=== PATIENT | female | born 1995 | race Two or more races ===

== ENCOUNTER 2018-02-09 13:07 | Inpatient (IN) | payer BC, OTHER ==
[~2018-02-09] VITALS: Ht 160 cm; Wt 68.9 kg
--- NOTE | 2018-02-09 16:50 | NUR ---
PT ARRIVED TO MEDICAL SURGICAL UNIT AT THIS TIME, VIA AMBULATION. ADMITTED TO ROOM 108.
[2018-02-09] MEDS ORDERED: HUMALOG100 UNITS/ SUB-Q (17:01)
[2018-02-09] MEDS ORDERED: LANTUS100 UNITS/ SUB-Q (17:02)
[2018-02-09] MEDS ORDERED: AUGMENTIN 875-1 EACH PO (17:04)
[2018-02-09] MEDS ORDERED: PRENATAL 19 TA1 EAC1 PO (17:05)
--- NOTE | 2018-02-09 17:50 | NUR ---
PT ARRIVED TO UNIT. DIRECT ADMIT FROM DR. TEJEDA. INTAKE AND ASSESSMENT DONE. PIV STARTED PER PROTOCOL. CBG TAKEN = 92. PT STATES SHE ALREADY TOOK HER INSULIN DOSE THIS EVENING. PEANUT BUTTER AND CRACKERS PROVIDED. DINNER ORDER PLACED. ASSESSMENT DONE. PT ORIENTED TO ROOM AND DEMONSTRATES HOW TO CALL HER NURSE. PT STATES SHE HAS NO ADDITIONAL REQUESTS OR COMPLAINTS AT THIS TIME. CALL LIGHT WITHIN REACH. BED RAILS UP.
--- NOTE | 2018-02-09 18:24 | NUR ---
MED REC COMPLETE
--- NOTE | 2018-02-09 18:37 | NUR ---
RN IN ROOM. FRESH ICE WATER.
--- NOTE | 2018-02-09 18:57 | NUR ---
POST PRANDIAL CBG TAKEN PER ORDER. AT BEDSIDE. CBG READS 50. JUICE GIVEN. WILL RECHECK CBG IN 15 MINUTES (1909). PT DENIES DIZZINESS, LIGHTHEADEDNESS BUT STATES SHE FEELS "SWEATY." BED RAILS UP. CALL LIGHT WITHIN REACH.
--- NOTE | 2018-02-09 19:14 | NUR ---
BLOOD SURGAR RETAKEN, READS 69. HAND OFF REPORT GIVEN TO TOYA WHO WILL CALL DR. TEJEDA WITH RESULTS.
--- NOTE | 2018-02-09 19:18 | NUR ---
PT ARRIVED THIS EVENING A DIRECT ADMIT FROM DR TEJEDA FOR BLOOD SURGAR CONTROL. NEW DIAGNOSIS OF TYPE 1 DIABETES. ORDERS FOR BLOOD SUGAR CHECKS FASTING IN AM, WITH MEALS, AND 1 HOUR POST PRANDIAL EXACTLY 1 HOUR AFTER FIRST BITE OF MEAL, AND AT 3AM. DR. TEJEDA TO BE CALLED WITH ALL BLOOD SUGAR CHECKS. POST PRANDIAL BLOOD SUGAR CHECK AT 1855 READ 50, CURRENTLY IN HYPOGLYCEMIA PROTOCOL. CASE MANAGEMENT CONSULT FOR HOME FOOD/DIET NEEDS.
--- NOTE | 2018-02-09 19:35 | NUR ---
PATIENTS BLOOD SUGAR WHEN CHECKED ONE HOUR POST EATING IT WAS 69. PATIENT GIVEN APPLE JUICE. AND RECHECKED 30 MINUTES LATER AND IT WAS 86. PLACED A CALL TO DR TEJEDA. DR TEJEDA GAVE A VERBAL ORDER TO GIVEN LEVEMIR AT 2100. VERIFIED ORDER USING THE READBACK METHOD. NO FRUTHER ORERS.
--- NOTE | 2018-02-09 20:09 | NUR ---
REPORT RECEIVED FROM DAY SHIFT NURSE. PATIENT RESTING IN BED AND WATCHING TV WHILE HAVING A SNACK. WILL CONTINUE TO MONITOR BLOOD GLUCOSE. PATIENT DENIES ANY NEEDS AT THIS TIME. CALL LIGHT WITHIN REACH.
--- NOTE | 2018-02-09 20:35 | NUR ---
PATIENT ASSESSMENT COMPLETED. I&Os AND VITAL SIGNS RECORDED. PATIENT EDUCATED ABOUT SIGNS AND SYMPTOMS OF HYPOGLYCEMIA. PATIENT VERBALIZED UNDERSTANDING. MEDICATIONS GIVEN PER ORDER. PATIENT DENIES ANY OTHER NEEDS AT THIS TIME. CALL LIGHT WITHIN REACH. PATIENT INDEPENDENT IN ROOM.
--- NOTE | 2018-02-09 22:32 | NUR ---
PATIENT RESTING IN BED, TV OFF. PATIENT EDUCATED ABOUT SLEEP. PATIENT VERBILIZES UNDERSTANDING. LIGHTS OFF IN THE ROOM. PATIENT DENIES PAIN. PATIENT DENIES ANY OTHER NEEDS AT THIS TIME. CALL LIGHT WITHIN REACH. PATIENT INDEPENDENT IN ROOM.
--- NOTE | 2018-02-10 01:27 | NUR ---
PATIENT RESTING IN BED WITH EYES CLOSED. RR 17. BREATHING EVEN AND UNLABORED, NO SIGNS OF RESPIRATORY DISTRESS. PATIENT INDEPENDENT IN ROOM. CALL LIGHT WITHIN REACH.
--- NOTE | 2018-02-10 03:00 | NUR ---
PATIENT ASSESSMENT COMPLETED. PATIENT GLUCOSE TAKEN PER ORDER, MD NOTIFIED. PATIENT GIVEN SNACK, WILL RECHECK CBG IN AN HOUR PER MD. PATIENT DENIES PAIN. FRESH WATER GIVEN. VITAL SIGNS AND I&Os DOCUMENTED. PATIENT RESTING IN BED. PATIENT INDEPENDENT IN ROOM. PATIENT DENIES ANY OTHER NEEDS AT THIS TIME. PATIENT DENIES OR SHOWS SIGNS OF HYPOGLYCEMIA. CALL LIGHT WITHIN REACH.
--- NOTE | 2018-02-10 03:16 | NUR ---
PATIENTS BLOOD SUGAR TAKEN AND RECORDED. BS 70. PLACED CALL TO DR TEJEDA PER ORDER. RECEIVED VERBAL ORDER FROM DR TEJEDA TO GIVE SNACKS AND REPEAT IN 1HOUR FROM FIRST BITE. CONFIRMED ORDER USING THE READBACK METHOD. PATIENT GIVEN JUICE AND ESVIN CRACKERS.
--- NOTE | 2018-02-10 04:20 | NUR ---
PATIENT RESTING IN BED WITH EYES CLOSED. PATIENT BLOOD GLUCOSE RECHECKED PER MD ORDER. BLOOD GLUCOSE WNL. PATIENT DENIES ANY OTHER NEEDS AT THIS TIME. CALL LIGHT WITHIN REACH.
--- NOTE | 2018-02-10 05:07 | NUR ---
PATIENT RESTED WELL THROUGHOUT NIGHT. PATIENT ON RA. PATIENT DENIED PAIN. ADA DIET. PATIENTS IV SL IN RIGHT AC. DIET, DIABETIC, AND CASE MANAGEMENT CONSULT ORDERED. PATIENTS BLOOD GLUCOSE TAKEN PER ORDER. CALL MD WITH ALL GLUCOSE READINGS. PATIENT INDEPENDENT IN ROOM. PATIENTS GLUCOSE LEVELS WNL THOUGH THE NIGHT.
--- NOTE | 2018-02-10 07:04 | NUR ---
PATIENTS BLOOD SUGAR WAS LOW. PATIENT GIVEN ORANGE JUICE, CRACKERS, AND PEANUT BUTTER. MD NOTIFIED. NEW ORDERS RECEIVED. CONFIRMED NEW ORDERS USING THE READBACK METHOD. WILL PASS ORDERS ONTO DAY SHIFT.
--- NOTE | 2018-02-10 07:17 | NUR ---
PT IN BED, DROWSY BUT AWAKE. PERSONAL SUPPLIES AND CALL LIGHT IN REACH. RECIEVED BEDSIDE REPORT FROM LUISA PITTMAN AND SUE, STUDENT NURS.
--- NOTE | 2018-02-10 08:00 | NUR ---
PATIENT SITTING UP IN BED WITH TV ON AND LOOKING AT HER CELL PHONE. PATIENT STATES THAT SHE WOULD LIKE TO SHOWER AFTER BREAKFAST. CALL BUTTON IN REACH. NO OTHER NEEDS AT THIS TIME.
--- NOTE | 2018-02-10 08:06 | NUR ---
PT'S BG CHECKED AT 0758, BG 104. NOTIFIED DR. TEJEDA VIA TELEPHONE. . PT BEGAN EATING AT 0758.
--- NOTE | 2018-02-10 08:29 | NUR ---
PT ATE 30% OF BREAKFAST. DR. TEJEDA IN TO SEE PT. GAVE VORB AT BEDSIDE TO GIVE 5 UNITS OF NOVOLOG SQ RATHER THAN THE ORDERED 10 UNITS SQ NOVOLOG PT ONLY ATE 30% OF BREAKFAST. PT'S PERSONAL SUPPLIES IN REACH, IS CALL LIGHT.
--- NOTE | 2018-02-10 09:35 | NUR ---
PATIENT GETTING READY FOR A SHOWER. FRESH ICE WATER GIVEN AND LINENS CHANGED. NO OTHER NEEDS AT THIS TIME.
--- NOTE | 2018-02-10 11:19 | NUR ---
PT IN BED, AWAKE, ALERT, WATCHING TV AND ON PHONE. DENIES PAIN OR NAUSEA. PERSONAL SUPPLIES AND CALL LIGHT IN REACH. PT REPORTED HAVING A LARGE FORMED BM.
--- NOTE | 2018-02-10 11:44 | NUR ---
PT'S BG WAS 87. NOTIFIED DR. TEJEDA VIA PHONE. RECIEVED TORB: GIVE NOVOLOG 9 UNITS SQ X 1, AND HOLD NOVOLOG 16 UNITS.
--- NOTE | 2018-02-10 12:24 | NUR ---
TIN POURER IN TO SEE PT. ONCE TIN POURER LEFT PT'S ROOM, PT BEGAN EATING LUNCH. STARTED EATING AT 1221. PT DENIES NEEDS, PERSONAL SUPPLIES AND CALL LIGHT IN REACH. PT'S SISTER AT BEDSIDE. PT DENIED PAIN.
--- NOTE | 2018-02-10 12:31 | NUR ---
PT HAS EATEN 80% OF HER LUNCH THUS FAR. GAVE NOVOLOG 9 UNITS SQ X 1 ORDERED. PT TOLERATING LUNCH WELL.
--- NOTE | 2018-02-10 13:24 | NUR ---
PT IN BED, BG CHECKED, 174. NOTIFIED DR. TEJEDA VIA TELEPHONE. NO NEW ORDERS AT THIS TIME. PT'S PERSONAL SUPPLIES IN REACH, IS CALL LIGHT.
--- NOTE | 2018-02-10 13:25 | NUR ---
PT RESTING IN BED. I FOUND HER PLEASANT, SOFT SPOKEN AND SEEMED COMFORTABLE WITH MY PRESENCE. PT SPOKE VERY SOFTLY, RM SEEMED RATHER CHILLY TO ME. PT SAID IT WAS COMFORTABLE TO HER. SHE THANKED ME FOR COMING, EXTENDED A BLESSING, WILL CONTINUE TO FOLLOW NEEDED
--- NOTE | 2018-02-10 13:35 | NUR ---
PATIENT RESTING IN BED WITH FRIEND IN ROOM TO VISIT. THIS TAILING MACHINE OPERATOR ENCOURAGED THE PATIENT TO DRINK MORE FLUIDS. CALL BUTTON IN REACH. NO OTHER NEEDS AT THIS TIME.
--- NOTE | 2018-02-10 15:41 | NUR ---
PATIENT RESTING IN BED, EYES CLOSED. FRESH ICE WATER AT BEDSIDE TABLE. CALL LIGHT IN REACH. NO OTHER NEEDS AT THIS TIME.
--- NOTE | 2018-02-10 16:42 | NUR ---
PT IN BED, AWAKE, ALERT, ORIENTED. DENIES PAIN. REPORTED HAVING A SOFT MEDIUM BM, AND HAD 250 CC CLEAR YELLOW URINE OUT. PROVIDED WITH FRESH ICE WATER. PT DENIED OTHER NEEDS.
--- NOTE | 2018-02-10 16:54 | NUR ---
PT'S BG [address] TEJEDA VIA TELEPHONE. DR. TEJEDA STATED THAT PT IS TO RECIEVE NOVOLOG 16 UNITS SQ ORDERED, WITH NO CHANGES TO DOSE. DR. TEJEDA STATED THAT HE WILL COME TO FLOOR TO ROUND ON PT AFTER HIS OFFICE HOURS, PROBABLY AROUND 1800.
--- NOTE | 2018-02-10 17:12 | NUR ---
PT RECIEVED DINNER, AND IS NOW STARTING TO EAT IT.
--- NOTE | 2018-02-10 17:27 | NUR ---
PT EATING DINNER, HAS EATEN 100% OF CHEESEBURGER, HAS NOT YET EATEN COTTAGE CHEESE OR FRUIT CUP. RECIEVED SCHEDULED NOVOLOG 16 UNITS SQ ORDERED.
--- NOTE | 2018-02-10 17:49 | NUR ---
PATIENT RESTING IN BED, FAMILY IN ROOM. CALL LIGHT IN REACH. FRESH ICE WATER AT BEDSIDE TABLE. NO OTHER NEEDS AT THIS TIME.
--- NOTE | 2018-02-10 17:51 | NUR ---
PT ALERT, ORIENTED X 4. STEADY ON FEET. ON 1800 ADA DIET. PT'S BG CHECKED ORDERED, DR. TEJEDA CALLED WITH EACH BG PER ORDERS. AT 0758, BG 104. PT ATE 30% OF BREAKFAST, SO PT GIVEN NOVOLOG [address] TEJEDA. PT'S 1 HOUR POST MEAL BG WAS 209, AND NOVOLOG 5 UNITS SQ GIVEN PER DR. TEJEDA. PT'S SCHEDULED NOVOLOG 16 UNITS SQ AM DOSE HELD. BG AT 1130 WAS 87, NOVOLOG [address] TEJEDA, AND PT ATE 100% OF LUNCH. 1 HOUR POST LUNCH BG WAS 174. DR. TEJEDA NOTIFIED ORDERED. NOON DOSE OF NOVOLOG [address] TEJEDA. BG AT 1650 WAS 190, DR. TEJEDA NOTIFIED, AND NOVOLOG 16 UNITS SQ GIVEN ORDERED PER DR. TEJEDA. PT HAS DENIED ANY SYMPTOMS OF HYPOGLYCEMIA OR HYPERGLYCEMIA THIS SHIFT. PT HAD LARGE FORMED BM, THEN MEDIUM SOFT/LOOSE BM THIS SHIFT. URINE OUTPUT QUANTITY SUFFICIENT. LUNGS CLEAR, DIMINISHED IN BASES AT TIMES, PT EDUCATED REGARDING DEEP BREATHING AND COUGHING, WHICH PT RETURN DEMONSTRATED. PT GIVEN FINAL DOSE OF AUGMENTIN THIS EVENING. DR. TEJEDA D/C'D LEVEMIR 50 UNITS SQ AT HS, DR. TEJEDA TO ROUND ON PT THIS EVENING.
--- NOTE | 2018-02-10 18:16 | NUR ---
PT'S BG CHECKED, BG 188. DR. TEJEDA TO ROOM, NOTIFIED DR. TEJEDA THAT PT'S 1 HOUR POST MEAL BG WAS 188. DR. TEJEDA IN DISCUSSING PLAN OF CARE WITH PT.
--- NOTE | 2018-02-10 19:25 | NUR ---
BEDSIDE REPORT RECIEVED FROM DAY SHIFT NURSE. PATIENT RESTING IN BED. PATIENT INDEPENDENT IN ROOM. PATIENT DENIES ANY NEEDS AT THIS TIME. CALL LIGHT WITHIN REACH.
--- NOTE | 2018-02-10 20:40 | NUR ---
VITALS AND I&OS DONE AND CHARTED. BEDSIDE TABLE AND CALL LIGHT WITHIN REACH. GOT SOME ICE WATER A BLANKET AND A PILLOW FOR HER GUEST. PT NEEDS NOTHING ELSE AT THIS TIME.
--- NOTE | 2018-02-10 21:15 | NUR ---
PATIENT ASSESSMENT COMPLETED. MEDICATION GIVEN PER ORDER. PATIENT APPEARS TO BE GETTING READY FOR BED. SO STAYING WITH PATIENT OVERNIGHT, BEDDING PROVIDED. PATIENT INDEPENDENT IN THE ROOM. PATIENT DENIES ANY NEEDS AT THIS TIME. CALL LIGHT WITHIN REACH.
--- NOTE | 2018-02-10 23:17 | NUR ---
PATIENT RESTING IN BED WITH EYES CLOSED. BREATHING EVEN AND UNLABORED, RR 17. CALL LIGHT WITHIN REACH.
--- NOTE | 2018-02-11 03:00 | NUR ---
PATIENTS BLOOD GLUCOSE TAKEN PER ORDER. BLOOD GLUCOSE ELEVATED. PLACED CALL TO DR TEJEDA ABOUT PATIENTS ELEVATED BLOOD SUGARS, NO NEW ORDERS AT THIS TIME. WILL CONTINUE TO MONITOR. PATIENT DENIES ANY PAIN, NAUSEA, OR HEADACHE. ASSESSMENT COMPLETED. CALL LIGHT WITHIN REACH.
--- NOTE | 2018-02-11 03:58 | NUR ---
PATIENT RESTING IN BED WITH EYES CLOSED. BREATHING EVEN AND UNLABORED, RR 18. CALL LIGHT WITHIN REACH.
--- NOTE | 2018-02-11 05:59 | NUR ---
VITALS AND I&OS DONE AND CHARTED. FRESH ICE WATER GIVEN. DIET SODA GIVEN. BEDSIDE TABLE AND CALL LIGHT WITHIN REACH. PT NEEDS NOTHING ELSE AT THIS TIME.
--- NOTE | 2018-02-11 06:04 | NUR ---
PATIENT RESTING IN BED WATCHING TV. PATIENT ASSESSMENT COMPELETED. PATIENT DENIES PAIN OR NAUSEA. PATIENT DENIES ANY OTHER NEEDS AT THIS TIME. CALL LIGHT WITHIN REACH.
--- NOTE | 2018-02-11 07:30 | NUR ---
PATIENT RESTING QUIETLY IN BED. PATIENT COMFORTABLE AND DOES NOT NEED ANYTHING AT THIS TIME.
--- NOTE | 2018-02-11 07:32 | NUR ---
PLACED CALL TO DR TEJEDA ABOUT PATIENTS BLOOD SUGAR. NO NEW ORDERS AT THIS TIME
--- NOTE | 2018-02-11 08:15 | NUR ---
PATIENT AWAKE AND ALERT. AM BLOOD SUGAR 243. CONFIRMED WITH THAT 20 UNITS LEVEMIR AND 16 UNITS NOVOLOG TO BE GIVEN AT BREAKFAST. INSULIN GIVEN AND PATIENT STARTED BREAKFAST AT 0804. TO RECHECK BLOOD SUGAR IN 1 HOUR.
--- NOTE | 2018-02-11 10:00 | NUR ---
0908-BLOOD SUGAR 203. CALLED AND ORDERS FOR FOR 4 UNITS NOVOLOG GIVEN. THIS WAS GIVEN BY CHARGE NURSE LUISA LUQUE. PATIENT NOT HAVING ANY PAIN. PATIENT HAS NO COMPLAINTS. PATIENT WILL CALL IF SHE NEEDS ANYTHING.
--- NOTE | 2018-02-11 11:48 | NUR ---
PT RESTING IN BED, TV ON AND USING HER PHONE. SUPPLY CLERK CONTINUING TO MONITOR PT'S BS LEVELS. PT STATED SHE WAS OK, SEEMED VERY INTERESTED IN HER PHONE. WILL CONTINUE TO FOLLOW
--- NOTE | 2018-02-11 11:56 | NUR ---
PRE-LUNCH BLOOD SUGAR 35. 1 AMP D50 GIVEN IV. INFORMED. COMING IN NOW. PATIENT IS ALERT AND ORIENTED AND EATING LUNCH.
--- NOTE | 2018-02-11 12:15 | NUR ---
HERE DISCUSSING PATIENT WITH . TO RECHECK BLOOD SUGAR IN AN HOUR. PATIENT IS DOING OK AT THIS TIME.
--- NOTE | 2018-02-11 12:53 | NUR ---
PATIENT IS IN THE SHOWER. CHANGED HER BED LINENS. INDEPENDENT. TOLD HER IF SHE NEEDED ANYTHING JUST PULL THE CORD.
--- NOTE | 2018-02-11 13:15 | NUR ---
1315-PATIENT'S BLOOD SUGAR 256. NO INSULIN TO BE GIVEN AT THIS TIME PER MD. NEXT BLOOD SUGAR TO BE TAKEN BEFORE DINNER. PATIENT STILL DOING OK.
--- NOTE | 2018-02-11 13:15 | NUR ---
RECHECKED PATIENT'S BLOOD SUGAR.
--- NOTE | 2018-02-11 14:37 | NUR ---
FOLLOW-UP DIABETES EDUCATION. SEE INITIAL ASSESSMENT 02/10. REVIEWED CARB GOALS AND SAMPLE MEALS. PROVIDED WRITTEN SAMPLE MENUS AND SNACK IDEA LIST. DISCUSSED WAYS TO IMPROVE NUTRITION WITH TYPICAL HOME MEALS FOR AND BLOOD SUGAR CONTROL. PT DISCUSSED HER COMMITMENT TO DOING ALL SHE CAN TO CARE FOR HER SELF AND HER BABY AND HER DISAPPOINTMENT THAT SOME HEALTHCARE PROFESSIONALS HAVE SHAMED HER. SCHEDULED OUT-PATIENT FOLLOW-UP APPOINTMENT FOR 02/17 AT 9 AM.
--- NOTE | 2018-02-11 15:30 | NUR ---
AFTERNOON ASSESSMENT COMPLETE. PATIENT DOING FINE. NO COMPLAINTS AT THIS TIME. PATIENT SITTING IN BED WATCHING TV.
--- NOTE | 2018-02-11 18:49 | NUR ---
PATIENT HAD AN AM FASTING SUGAR OF 243 AND HAD HER LEVEMIR AND 16 UNITS OF NOVOLOG. 1 HOUR POST PRANDIAL WAS 203 AND COVERED WITH 4 UNITS NOVOLOG. LUNCH TIME BS WAS 35 AND 1 AMP D50 IV GIVEN ALONG WITH PATIENT'S MEAL AND DR. CHAVIRA SAID TO GET A BLOOD SUGAR ONE HOUR POST DEXTROSE WHICH WAS 256 AND NO INSULIN WAS GIVEN PER MD ORDER. DINNER BS WAS 198 AND ORDER WAS GIVEN FOR 10 UNITS SQ NOVOLOG WAS GIVEN FROM AND 2 HOUR POSTPRANDIAL SUGAR IS DUE AT 1923. PATIENT HAS BEEN AMBULATING TO THE BATHROOM WITHOUT DIFFICULTY AND HAS HAD NO COMPLAINTS TODAY EXCEPT FOR FEELING A LITTLE SWEATY WITH THE LUNCH BS OF 35. PATIENT CURRENTLY SITTING IN BED WATCHING TELEVISION. REPORT TO BE GIVEN TO NIGHTSHIFT.
--- NOTE | 2018-02-11 19:50 | NUR ---
DR CHAVIRA NOTIFIED VERBALLY, DR TEJEDA NOTRIFIED VIA PHONE MESSAGE OF 1HR POSTPRANDIAL CBG OF 171. PT ASYMPTOMATIC, WATCHING TV
--- NOTE | 2018-02-11 20:00 | NUR ---
RECEIVED REPORT AT 1900, FOUND PT IN BED WITH FAMILY AT BEDSIDE. PT HAD NO CONCERNS AT THAT TIME.
--- NOTE | 2018-02-11 20:12 | NUR ---
1999 - DR TEJEDA HERE IN FLOOR, VERBAL REPORT GIVEN R/T CBG 171
--- NOTE | 2018-02-11 22:00 | NUR ---
V/S ARE WDL. BG AT 1930 WAS 171, TEJEDA IS AWARE. ALL LOBES ARE CLEAR, PT IS INDEPENDENT IN ROOM. PT DENIES PAIN AND HAS NO OTHER CONCERNS.
--- NOTE | 2018-02-12 00:08 | NUR ---
PT IS SLEEPING AT THIS TIME.
--- NOTE | 2018-02-12 02:00 | NUR ---
PT IS SLEEPING AT THIS TIME.
--- NOTE | 2018-02-12 04:00 | NUR ---
PT IS SLEEPING AT THIS TIME.
--- NOTE | 2018-02-12 05:05 | NUR ---
PT OVERALL HAD AN UNEVENTFULL NIGHT. BG AT 1930 WAS 171. BG AT 0300 [id number]. MD TEJEDA WAS CALLED FOR ALL RESULTS. V/S ARE WDL. PT DENIES PAIN AND CRAMPING. ALL LOBES ARE CLEAR, ABD SOUNDS ARE PRESENT. 15 UNITS OF LEVEMIR WAS GIVEN PER MD TEJEDA. NO NEW CONCERNS FOR THIS PT NOTED SO FAR.
--- NOTE | 2018-02-12 05:51 | NUR ---
VITALS AND I&OS DONE AND CHARTED. FRESH WATER GIVEN. TRASH THROWN AWAY. GARBAGES EMPTIED. BEDSIDE TABLE AND CALL LIGHT WITHIN REACH. PT NEEDS NOTHING ELSE AT THIS TIME.
--- NOTE | 2018-02-12 07:35 | NUR ---
PATIENT UP IN BED, BOYFRIEND IN BED NEXT TO HER. BREAKFAST HAS BEEN ORDERED. APPLEJUICE GIVEN TO BOYFRIEND. ROOM TIDIED. CALLLIGHT IN REACH
--- NOTE | 2018-02-12 08:30 | NUR ---
0756 BLOOD SUGAR WAS 229. 0805 SPOKE TO ON THE PHONE AND HE INITIALLY ORDERED 15UNITS OF SUBQ NOVOLOG AND AFTER FURTHER CONSIDERATION DECREASED IT TO 12 UNITS SUBQ NOVOLOG WHICH WAS ORDERED AND GIVEN DOUBLE CHECKED WITH RN. 2 HOUR POSTPRANDIAL ALSO ORDERED AND COMPLETED BY ANJEL HOLT. SEE HER DOCUMENTATTION. BOYFRIEND OF PATIENT AT BEDSIDE.
--- NOTE | 2018-02-12 09:37 | NUR ---
PATIENT IN BED APPEARS TO BE SLEEPING, BOYFRIEDND IN BED WELL. VITALS AND I/OS DONE. DR IN ROOM. GARBAGE EMPTIED CALL LIGHT IN REACH
--- NOTE | 2018-02-12 10:29 | NUR ---
PT POST PRANDIAL 217. CALLED DR TEJEDA, HE HAD NO NEW ORDERS AND STATED HE WOULD BE ON THE FLOOR IN APPROX AN HOUR. INFORMED DR CHAVIRA AND LUISA LARRY.
--- NOTE | 2018-02-12 10:40 | NUR ---
PATIENT IN BED ASLEEP WITH BOYFRIEND LAYING NEXT TO HER ASLEEP AT THIS TIME.
[2018-02-12] MEDS ORDERED: LANTUS100 UNITS/ SUB-Q (11:37)
[2018-02-12] MEDS ORDERED: NOVOLOG100 UNIT/2 SUB-Q (11:40)
--- NOTE | 2018-02-12 11:45 | NUR ---
SPOKE WITH DR TEJEDA REGARDING PATIENT POSSIBLY BEING FOLLOWED BY CASE MANAGEMENT. CHW WILL MAKE CONTACT WITH PATIENT TO SEE IF SHE IS OPEN TO HAVING HELP WITH FOLLOW UP APPOINTMENTS, NAVIGATING HEALTH SYSTEM DURING PREGNACY. DR TEJEDA IS DISCHARGING PATIENT TODAY.
--- NOTE | 2018-02-12 11:50 | NUR ---
PATIENT SITTING UP IN BED, BOYFRIEND IN BED ALSO. PATIENT CALLING DIETARY FOR LUNCH MARCY;L LIGHT IN REACH
--- NOTE | 2018-02-12 12:45 | NUR ---
SPOKE WITH PATIENT AND BOYFRIEND IN ROOM ACCOMPANIED BY [facility] CHW. DISCUSSED CHW PROGRAM AND HELP WITH TRANSPORTATION TO HER APPOINTMENTS. PATIENT AND BOYFRIEND BOTH STRESS THAT HE CAN'T TAKE OFF WORK EASILY AND SHE HAS NO OTHER OPTIONS WITH FAMILY FOR HELP. SHE IS OPEN TO WORKING WITH [facility] AFTER DISCHARGE. DISCUSSED THAT [facility] CAN ALSO HELP WITH OTHER RESOURCES TO HELP HER MAINTAIN HER HEALTH AT HOME. [facility] WILL CONTACT HER BY PHONE NEXT. PATIENT STATES SHE HAS ALL SUPPLIES FOR BLOOD SUGAR CHECKS, AND MEDICATIONS. PATIENT STATES SHE DID DIABETIC EDUCATION HERE WITH STAFF. PATIENT UNDERSTANDS SHE HAS APPOINTMENT THURSDAY WITH PCP IN [place], APPOINTMENT IN [place] WITH MATERNAL/ SPECIALIST FROM [place], AND SHE WILL BE SEEING DR TEJEDA WEEKLY IN HIS CLINIC. NO FURTHER QUESTIONS.
--- NOTE | 2018-02-12 13:40 | NUR ---
PATIENT AT EDGE OF BED, BOYFRIEND ON BED ALSO.VITALS AND I/OS DONE. CALL LIGHT IN REACH
--- NOTE | 2018-02-12 14:03 | NUR ---
LUISA LARRY INFORMED ME THAT PT WAS ASLEEP. PT IS TO ALSO BE DC'D TODAY ALSO. WILL FOLLOW NEEDED
--- NOTE | 2018-02-15 08:49 | NUR ---
MAGDY and LUISA Sandoval from Case Management met with patient and her boyfriend in the patient room. All discussed the CHW program and the follow up included with the patient. CHW referred Radha to meet with patient to see if patient would be approved for Medicaid services. Per Radha on Thursday02/15/18 patient was approved for Medicaid services.
--- NOTE | 2018-02-15 08:51 | NUR ---
CHW spoke with patient on 02/15/18Thursday morning. Patient stated her mom will be taking her to her appointment today 02/15/18 @ 11:[address] [place] [address] Rivera. Patient stated her next appointment is 02/[address] Helm and CHW stated that a referral was made to the spanish teacher Candice and that appointment is on 02/17/18 as well. CHW discussed about making a referral over to the [facility] program which helps first time moms that are under 6 months with mainitaing help with in home assessment and an RN is provided to help with care to the mother during the , patient agreed to the service and referral. CHW will work on transportation for patient to and from appointments.
--- NOTE | 2018-02-15 09:17 | NUR ---
CHW made referral to [facility] since patient has a high risk and is needed to be monitored due to her diabetes. [facility] will help patient get to and from all appointments and work with patient on any housing matters along with a RN visitng with the patient in her home. Patient meets requirements for the program and patient is willing to work with the program.
--- NOTE | 2018-02-24 07:51 | EKG ---
[facility] [address] [place], [place] [address] Signed Normal sinus rhythm Normal ECG No previous ECGs available Confirmed by NESS CHAVIRA MD ([id number]) on 02/24/2018 7:51:33 AM Electronically Signed By: NESS CHAVIRA MD 02/24/18 0751 PATIENT NAME: ALLA JAMISON Electrocardiogram DATE OF : [birth year] PHYSICIAN: NESS CHAVIRA MD REPORT #: [id number] REPORT IS CONFIDENTIAL AND NOT TO BE RELEASED WITHOUT AUTHORIZATION
== END 2018-02-12 15:05 | disposition home or self-care (01) | DRG 781 ==
LOC: MS 13:07
PROVIDERS: ADMIT Obstetrics & Gynecology
DX: O24.011 Pre-existing type 1 diabetes mellitus, in pregnancy, first trimester (principal); O23.41 Unspecified infection of urinary tract in pregnancy, first trimester; O98.811 Other maternal infectious and parasitic diseases complicating pregnancy, first trimester; O23.591 Infection of other part of genital tract in pregnancy, first trimester; E10.9 Type 1 diabetes mellitus without complications; B37.9 Candidiasis, unspecified; N76.0 Acute vaginitis; B96.89 Other specified bacterial agents as the cause of diseases classified elsewhere; Z3A.01 Less than 8 weeks gestation of pregnancy; Z87.891 Personal history of nicotine dependence; Z79.2 Long term (current) use of antibiotics
CPT/HCPCS: 36415; 80053; 85025; 93005; 93010

== ENCOUNTER 2021-03-26 11:59 | Inpatient (IN) | payer BC, OTHER ==
[~2021-03-26] VITALS: Ht 167.6 cm; Wt 99.8 kg
[~2021-03-26 11:59] MED LIST: AUGMENTIN 875-1 EACH PO; HUMALOG100 UNITS/ SUB-Q; LANTUS100 UNITS/ SUB-Q; NOVOLOG100 UNIT/2 SUB-Q; PRENATAL 19 TA1 EAC1 PO
--- NOTE | 2021-03-26 15:51 | NUR ---
Both nares swabbed for Covid-19 without complication. Sample taken to [facility].
--- NOTE | 2021-03-29 12:19 | NUR ---
CONNECTED WITH PT-SHE WOULD LIKE [facility] RICHARDS TO VISIT TODAY. WILL INFORM HIM
--- NOTE | 2021-04-19 22:53 | HP ---
[facility] [address], [place] [address] Signed ADMISSION DATE: 03/26/2021 CHIEF COMPLAINT: Type 1 diabetes at 34 weeks gestation, poorly controlled. HISTORY OF PRESENT ILLNESS: Ms. Jamison is a pleasant 26-year-old G2, P0-1-0-0 with IUP at 34 and 4 weeks gestation based on 5-week ultrasound with WILLIAMS of 05/03/2021. is complicated by type 1 diabetes since age of 3, that has generally been poorly controlled throughout her life. Prior ended with stillbirth in mid 2nd trimester, likely secondary to complications from her diabetes. The patient has struggled with diabetic control throughout this . Recently, she was placed on a continuous glucose monitor and insulin pump by her search marketing coordinator, Dr. Foster. She recently lost parts to each one of these devices and they are not currently working. At the appointment last week, her glucose levels were poorly controlled and again on visit today, very poor control is again noted with fasting blood sugars generally above 200 and postprandials ranging from mid 70s to nearly 300. Recommended inpatient admission for glucose control and the patient agrees. NST was reactive today. Biophysical profile was 8/8 with an SANDRA that was normal per RN. PAST MEDICAL HISTORY: Type 1 diabetes. MEDICATIONS: 1. vitamins. 2. Levemir 46 units in a.m. and 35 units at bedtime. 3. Lispro 20 units with meals with sliding scale. 4. Sertraline 25 mg p.o. daily. 5. Keflex 500 mg p.o. daily at bedtime. 6. Aspirin 81 mg daily. ALLERGIES: No known drug allergies. SURGICAL HISTORY: None. HOSPITALIZATIONS: Multiple hospitalizations for DKA in the past. FAMILY HISTORY: Electronically Signed By: TY HELM DO 04/19/21 0581 PATIENT NAME: TEREZA JAMISON HISTORY AND PHYSICAL DATE OF : [birth year] REPORT #: [id number] PHYSICIAN: TY HELM DO PCP: YANET ATKINSON PAC REPORT IS CONFIDENTIAL AND NOT TO BE RELEASED WITHOUT AUTHORIZATION [facility] [address], [place] [address] Signed Father alive. Mother alive with history of myocardial infarction. SOCIAL HISTORY: The patient is a nonsmoker. Does not drink alcohol or use recreational drugs. She is unemployed and lives with her boyfriend. She struggles with transportation and other social issues. REVIEW OF SYSTEMS: A complete review of systems was performed and negative except per HPI. PHYSICAL EXAMINATION: VITAL SIGNS: Weight 99.8, blood pressure 122/78. HEENT: Normocephalic, atraumatic. HEART: Regular rate and rhythm. LUNGS: Clear to auscultation bilaterally. NECK: Supple. Trachea midline with no masses. Uterus is gravid 43 cm today with heart rate of 155. EXTREMITIES: Trace edema. PELVIC: Performed in the office today demonstrating normal external genitalia with normal clitoris, urethral meatus, bilateral Opdyke's, and Bartholin's. Small amount of white physiologic discharge. Cervix was closed, thick, and posterior. LABORATORY DATA: Postprandial dinner 126. labs, O positive, antibody negative, Rubella immune, syphilis antibody negative. Hep B surface antigen negative. Hemoglobin 11.2, platelets 408. Baseline CMP, creatinine 0.6, AST 16, ALT 14. Early 1st trimester A1c 8.2, urine protein creatinine ratio is 0.61. History of urinary tract infection with Enterococcus faecalis and is currently on Keflex suppression nightly. IMAGING: Ultrasound today demonstrates a single live intrauterine cephalic with SANDRA of 20.9, anterior placenta, heart rate 148, estimated weight 2780 g, 6 pounds 2 ounces, 80th percentile. Biophysical profile 05/12, again NST was reactive today. ASSESSMENT: 1. Intrauterine at 34 and 4 weeks gestation. 2. Type 1 diabetes, poorly controlled. 3. History of loss. PLAN: We will admit the patient for extended glucose control. We will continue her home Electronically Signed By: TY HELM DO 04/19/21 2253 PATIENT NAME: TEREZA JAMISON HISTORY AND PHYSICAL DATE OF : [birth year] REPORT #: [id number] PHYSICIAN: TY HELM DO PCP: YANET ATKINSON PAC REPORT IS CONFIDENTIAL AND NOT TO BE RELEASED WITHOUT AUTHORIZATION [facility] [address] [place] [id number] Signed regimen of Levemir 46 units in the a.m. and 36 units at bedtime. We will check 3:00 a.m. fasting and 1 hour postprandial levels. She will receive lispro 20 units with meals (60 g carb consistent at regular intervals) and will adjust with a sliding scale approximately 1 unit for every 20 over target and adjust from there. She does have some history of being quite brittle. We will continue NSTs q. shift with scheduled BPP later in the week. We will continue her Keflex 500 mg p.o. at bedtime as well as her daily aspirin. Tereza and I had a long conversation regarding her poorly controlled diabetes and difficulty with rides, compliance and a variety of other issues that have made outpatient management of this not feasible at this point. We again reviewed her history of loss and the patient strongly agrees. She is concerned that if she is discharged prior to delivery that she will be unable to control her diabetes closely. We will attempt to control her diabetes as closely as possible, but will try to avoid hypoglycemic episodes. We will consult MFM later in the week regarding ongoing recommendations for timing of delivery. Reviewed plan of care with nursing staff and all questions were answered to the best of my ability to the patient's apparent satisfaction. Ty Helm DO JDW/MODL /[id number] Copies: ~ Electronically Signed By: TY HELM DO 04/19/21 2253 PATIENT NAME: TEREZA JAMISON HISTORY AND PHYSICAL DATE OF : [birth year] REPORT #: [id number] PHYSICIAN: TY HELM DO PCP: YANET ATKINSON PAC REPORT IS CONFIDENTIAL AND NOT TO BE RELEASED WITHOUT AUTHORIZATION
== END 2021-03-30 11:00 | disposition home or self-care (01) | DRG 833 ==
LOC: FBCO 11:59 → US 12:00 → FBC 15:11 → FBCO 15:11 → FBC 15:11
PROVIDERS: ADMIT Obstetrics & Gynecology; ATTEND Obstetrics & Gynecology
DX: O24.013 Pre-existing type 1 diabetes mellitus, in pregnancy, third trimester (principal); E10.65 Type 1 diabetes mellitus with hyperglycemia; Z3A.34 34 weeks gestation of pregnancy; Z79.82 Long term (current) use of aspirin; Z79.899 Other long term (current) drug therapy; Z79.4 Long term (current) use of insulin; Z91.11 Patient's noncompliance with dietary regimen; Z91.14 Patient's other noncompliance with medication regimen
CPT/HCPCS: 59025; 76815; 76818; 76819; 82803; A9270; C9803; J1815; U0003